=== PATIENT | male | born 1940 | race Caucasian/White ===

== ENCOUNTER 2017-10-10 05:59 | Emergency (ER) | payer MEDICARE, BC ==
[2017-10-10] MEDS ORDERED: 0.9 % SODIUM CHLORIDE 1000ML 1,000 ML IV SCH (06:15)
[2017-10-10 06:23] LABS: HEMATOCRIT 36.8 % (42.0-52.0); HEMOGLOBIN 11.9 gm/dl (14.0-18.0); MEAN CELL VOLUME 97.1 fl (81-97); MEAN CORPUSCULAR HGB CONC 32.3 g/dl (32-36); MEAN PLATELET VOLUME 10.3 fl (7.4-10.4); PLATELET COUNT 280 K/uL (130-400); RED BLOOD COUNT 3.79 M/uL (4.40-5.70); RED CELL DISTRIBUTION WIDTH 13.3 % (11.5-14.5); WHITE BLOOD COUNT W/O DIFF 14.7 K/uL (4.2-12.2)
--- NOTE | 2017-10-10 06:23 | Emergency Department Record ---
History of Present Illness - General Chief complaint: GI Bleed Stated complaint: RECTAL BLEEDING Time Seen by Provider: 10/10/17 06:13 Source: Patient Mode of Arrival: Wheelchair Limitations: No limitations - History of Present Illness Initial comments: 77 yo male presents to ED for evaluation of bright-red blood pre rectum x 2 that began this morning (5 hours ago). Patient reports associated dizziness, reports history of atrial fibrillation that he takes Plavix and Xarelto. Patient denies abdominal pain or vomiting symptoms. MD complaint: Gross hematochezia Onset/Timin -: Hour(s) Radiation: R flank Severity scale (1-10): 1 Quality: Sharp Consistency: Constant Improves with: Movement Worsens with: Rest Context: Blood thinners Associated Symptoms: Denies other symptoms Treatments Prior to Arrival: None - Related Data Allergies Allergy/AdvReac Type Severity Reaction Status Date / Time aspirin Allergy Intermediate ANAPHYLAXIS Verified 10/10/17 06:13 morphine Allergy Intermediate ANAPHYLAXIS Verified 10/10/17 06:13 Travel Screening - Travel/Exposure Within Last 30 Days Have you traveled within the last 30 days?: Yes Location Detail:: [place] - Travel/Exposure Within Last Year Have you traveled outside the [place] in the last year?: No - Additonal Travel Details Have you been exposed to anyone with a communicable illness?: No - Travel Symptoms Symptom Screening: None Review of Systems Constitutional: Denies: Chills, Fever, Malaise, Night sweats Eyes: Denies: Eye discharge, Eye pain ENT: Denies: Congestion, Ear pain, Epistaxis Respiratory: Denies: Cough, Dyspnea Cardiovascular: Denies: Chest pain, Dyspnea on exertion Endocrine: Denies: Fatigue, Heat or cold intolerance Gastrointestinal: Reports: Hematochezia. Denies: Abdominal pain, Nausea, Vomiting Genitourinary: Denies: Incontinence, Retention Musculoskeletal: Denies: Arthralgia, Back pain, Gout, Joint swelling Skin: Denies: Bruising, Change in color, Rash Neurological: Reports: Vertigo. Denies: Abnormal gait, Confusion, Headache, Seizure Psychiatric: Denies: Anxiety Hematological/Lymphatic: Reports: Easy bleeding, Easy bruising. Denies: Anemia , Blood Clots Past Medical History - SOCIAL HISTORY Smoking Status: Never smoker Alcohol Use: Rare Drug Use: None - RESPIRATORY Hx Respiratory Disorders: Yes Hx Dyspnea: Yes (SINCE THE HEART ATTACK) - CARDIOVASCULAR Hx Abnormal EKG: Yes Hx Cardiac Cath: Yes Hx Chest Pain: Yes Hx Heart Attack: Yes Hx Irregular Heartbeat: Yes - NEURO Hx Neuro Disorders: No - GI Hx GI Disorders: Yes Hx Reflux: Yes Hx Hiatal Hernia: Yes - Hx Genitourinary Disorders: Yes Hx Prostate Problems: Yes - ENDOCRINE Hx Endocrine Disorders: No - MUSCULOSKELETAL Hx Musculoskeletal Disorders: Yes Hx Arthritis: Yes (CURRENT PT) - PSYCH Hx Psych Problems: No - HEMATOLOGY/ONCOLOGY Hx Hematology/Oncology Disorders: No Family Medical History Any Significant Family History?: No Physical Exam - General General Appearance: Alert, Oriented x3, Cooperative, Mild distress Limitations: No limitations - Head Head exam: Atraumatic, Normocephalic, Normal inspection Head exam detail: negative: Abrasion, Contusion, Lui's sign, General tenderness, Hematoma, Laceration - Eye Eye exam: Normal appearance. negative: Conjunctival injection, Periorbital swelling, Periorbital tenderness, Scleral icterus - ENT Ear exam: negative: Auricular hematoma, Auricular trauma Nasal Exam: negative: Active bleeding, Discharge, Dried blood, Foreign body Mouth exam: negative: Drooling, Laceration, Muffled voice, Tongue elevation - Neck Neck exam: Normal inspection. negative: Meningismus, Tenderness - Respiratory Respiratory exam: Normal lung sounds bilaterally. negative: Rales, Respiratory distress, Rhonchi, Stridor - Cardiovascular Cardiovascular Exam: Irregular rhythm, Tachycardia - GI/Abdominal GI/Abdominal exam: Soft. negative: Rebound, Rigid, Tenderness - Rectal Rectal exam: Deferred - exam: Deferred - Extremities Extremities exam: Normal inspection. negative: Calf tenderness, Pedal edema, Tenderness - Back Back exam: Denies: CVA tenderness (R), CVA tenderness (L) - Neurological Neurological exam: Alert, Normal gait, Oriented X3 - Psychiatric Psychiatric exam: Normal affect, Normal mood - Skin Skin exam: Pallor. negative: Abrasion Type of lesion: negative: abrasion Course Vital Signs 10/10/17 06:02 Temperature 97.6 F Pulse Rate 123 H Respiratory 20 Rate Blood Pressure 132/98 Pulse Ox 99 - Reevaluation(s) Reevaluation #1: 10/10/17 06:13 EKG: Atrial Fibrillation Indetermiante axis, irregular R-R intervals No acute ST-T wave changes Reevaluation #2: 10/10/17 06:27 Initial CBC reviewed, Hgb 11.9 (previous 14-15). 10/10/17 06:44 Chemistry panel reviewed and is grossly unremarkable for an acute process. [facility] 1-call contacted for SDU bed placement. Reevaluation #3: 10/10/17 06:47 repeat blood pressure 105/62. Nursing staff attempting to obtain 2nd IV line. [facility] guidelines reviewed for reversal of NOAC, moderat bleeding recommends volume replacement and/or RBC's, [place] not recommended at this time. Will continue to monitor closely. Reevaluation #4: 10/10/17 07:12 2nd line established, repeat BP 125/77, pulse 110. [facility] 1-call recontacted to discuss transfer with attending. Reevaluation #5: 10/10/17 07:29 Case was discussed with Dr. Landaverde, will accept transfer for SDU placement/ admission. Medical Decision Making - Lab Data Result diagrams: 10/10/17 06:17 10/10/17 06:17 Critical Care Time Critical Care Time: Yes Total Critical Care Time: 35 Critical Care Time: Frequent reassessments/vitals, assessment for [facility], arrangement for transfer to [facility]. Disposition Disposition: Transfer Clinical Impression: BRBPR (bright red blood per rectum) Disposition: Acute Care Hospital Transfer Transfer To: [facility] Reason For Transfer: GI bleed Accepting Physician: Akhil Time Discussed w/Accepting Physician: 07:30 Condition: (3) Guarded Forms: Patient Portal Access Time of Disposition: 07:30 Quality - Quality Measures Quality Measures: N/A - Blood Pressure Screening Does Patient Have Any of the Following: No Blood Pressure Classification: Hypertensive Reading Systolic Measurement: 132 Diastolic Measurement: 98 Screening for High Blood Pressure: < First Hypertensive BP, F/U Documented > [ [id number]] First Hypertensive Follow-up Interventions: Referral to alternative/primary care provider.
[2017-10-10 06:25] LABS: MEAN CORPUSCULAR HEMOGLOBIN 31.3 pg (27-33)
[2017-10-10 06:41] LABS: PROTHROMBIN TIME (PATIENT) 11.2 SECONDS (9.5-12.1)
[2017-10-10 06:42] LABS: ALBUMIN 3.7 g/dL (4.0-5.0); ALKALINE PHOSPHATASE 86 U/L (40-129); ALT/SGPT 19 U/L (<41); AST/SGOT 18 U/L (10.0-50.0); BLOOD UREA NITROGEN 21 mg/dL (8-23)
[2017-10-10 06:43] LABS: ALB/GLOB RATIO 1.4 (1.1-1.8); CREATININE 0.8 mg/dL (0.7-1.2); EST GLOMERULAR FILTRATION RATE > 60 mL/min; GLUCOSE,RANDOM 154 mg/dL (74-109); TOTAL PROTEIN 6.4 g/dL (6.6-8.7)
[2017-10-10 07:06] LABS: ABO GROUP B; RH TYPE POSITIVE
[2017-10-10 07:07] LABS: ANTIBODY SCREEN NEGATIVE (NEGATIVE)
== END 2017-10-10 08:55 | disposition short-term general hospital (02) ==
LOC: ER 05:59
DX: K92.1 Melena (principal); I48.91 Unspecified atrial fibrillation; I25.2 Old myocardial infarction; Z79.01 Long term (current) use of anticoagulants; Z95.5 Presence of coronary angioplasty implant and graft
CPT/HCPCS: 80053; 85027; 85610; 86850; 86900; 86901; 93005; 93010; 99285; J7030